=== PATIENT | female | born 1975 | race Two or more races ===

== ENCOUNTER 2022-10-23 16:45 | Emergency (ER) | payer SELFPAY ==
[2022-10-23] MEDS ORDERED: HYDROcodone-ACET 5/325MG TAB PO ONE (18:45)
[2022-10-23] MEDS ORDERED: ONDANSETRON ODT 4 MG TAB PO ONE (18:45)
[2022-10-23 18:47] VITALS: BP 135/77
[2022-10-23 19:23] LABS: Basophils # (auto) 0.1 10 ^3/uL (0-0.2); Basophils % (auto) 1.1 % (0.0-2.0); Eosinophils # (auto) 0.3 10 ^3/uL (0-0.8); Eosinophils % (auto) 2.6 % (0.0-7.0); Hematocrit 31.3 % (36.0-46.0); Lymphocytes # (auto) 2.9 10 ^3/uL (0.4-5.4); Neutrophils # (auto) 7.1 10 ^3/uL (1.6-8.6); White Blood Cell 11.2 10^3/uL (4.4-10.8)
[2022-10-23 19:25] LABS: Hemoglobin 9.7 g/dL (12.2-16.2); Lymphocytes % (auto) 25.9 % (10.0-50.0); Mean Corpuscular Hemoglobin 19.5 pg (28.0-32.0); Mean Corpuscular Hgb Conc. 31.2 g/dL (32.0-36.0); Mean Corpuscular Volume 62.5 fL (80.0-100.0); Monocytes # (auto) 0.8 10 ^3/uL (0-1.3); Neutrophils % (auto) 63.4 % (37.0-80.0); Nucleated Red Blood Cells % 0.1 %
[2022-10-23 19:26] LABS: Red Cell Distribution Width 20.6 % (11.8-14.3)
[2022-10-23] MEDS ORDERED: NAP500T PO (19:27)
[2022-10-23] MEDS ORDERED: FER325T PO (19:44)
[2022-10-23 20:08] LABS: Albumin 3.4 g/dL (3.4-5.0); Calcium 8.1 mg/dL (8.5-10.1)
[2022-10-23 20:11] LABS: BUN/Creatinine Ratio 14.8 (10.0-20.0); Bilirubin, Total 0.2 mg/dL (0.2-1.0); Total Protein 7.3 g/dL (6.4-8.2)
[2022-10-24] MEDS ORDERED: IBUP600T27 PO (19:44)
[2022-10-24] MEDS ORDERED: ACET-1158 PO (19:44)
[2022-10-24] MEDS ORDERED: NITR-87 PO (19:44)
== END 2022-10-23 21:55 | disposition home or self-care (01) ==
LOC: ER 16:45
DX: M79.661 Pain in right lower leg (principal); D64.9 Anemia, unspecified
CPT/HCPCS: 36415; 80053; 85025; 93970; 99284; Q0162

== ENCOUNTER 2022-10-24 13:40 | Emergency (ER) | payer SELFPAY ==
[~2022-10-24] VITALS: Ht 157.5 cm; Wt 72.7 kg
[~2022-10-24 13:40] MED LIST: FER325T PO; NAP500T PO
[2022-10-24] MEDS ORDERED: ACETAMINOPHEN 500 MG TAB PO ONE (15:15)
[2022-10-24 15:50] LABS: Albumin 3.4 g/dL (3.4-5.0); Calcium 8.2 mg/dL (8.5-10.1); Potassium 3.7 mmol/L (3.5-5.1)
[2022-10-24 15:51] LABS: INR 0.98 (0.9-1.15)
[2022-10-24 15:53] LABS: BUN/Creatinine Ratio 15.9 (10.0-20.0); Bilirubin, Total 0.4 mg/dL (0.2-1.0); Total Protein 7.2 g/dL (6.4-8.2)
[2022-10-24 16:58] LABS: Basophils # (auto) 0.1 10 ^3/uL (0-0.2); Eosinophils # (auto) 0.2 10 ^3/uL (0-0.8); Eosinophils % (auto) 2.2 % (0.0-7.0); Hematocrit 31.8 % (36.0-46.0); Lymphocytes # (auto) 2.7 10 ^3/uL (0.4-5.4); Lymphocytes % (auto) 24.3 % (10.0-50.0); Mean Corpuscular Hemoglobin 19.7 pg (28.0-32.0); Mean Corpuscular Hgb Conc. 31.6 g/dL (32.0-36.0); Mean Corpuscular Volume 62.4 fL (80.0-100.0); Monocytes # (auto) 0.6 10 ^3/uL (0-1.3); Monocytes % (auto) 5.5 % (0.0-12.0); Neutrophils # (auto) 7.5 10 ^3/uL (1.6-8.6); Nucleated Red Blood Cells % 0.1 %; White Blood Cell 11.2 10^3/uL (4.4-10.8)
[2022-10-24 16:59] LABS: Red Cell Distribution Width 21.3 % (11.8-14.3)
[2022-10-24 18:58] LABS: Urine Bacteria FEW /hpf (None Seen); Urine Blood TRACE /uL (Negative); Urine Mucus FEW (None Seen); Urine Specific Gravity 1.037 (1.001-1.035); Urine WBC 11 /hpf (0 - 5)
[2022-10-24] MEDS ORDERED: ACET-1158 PO (19:44)
[2022-10-24] MEDS ORDERED: IBUP600T27 PO (19:44)
[2022-10-24] MEDS ORDERED: NITR-87 PO (19:44)
[2022-10-24 20:50] VITALS: BP 133/67
== END 2022-10-24 20:53 | disposition home or self-care (01) ==
LOC: ER 13:40
DX: N39.0 Urinary tract infection, site not specified (principal); M79.662 Pain in left lower leg; R60.0 Localized edema
CPT/HCPCS: 36415; 80053; 81001; 85025; 85610; 93971